=== PATIENT | female | born 1950 | race African-American/Black ===

== ENCOUNTER 2016-07-20 07:42 | Day surgery (SDC) | payer BC ==
--- NOTE | ~2016-07-20 | EGD ---
EGD REPORT [facility] [address] [place]. [address] NAME: BLADE SMITH : [birth year] STATUS : REG [facility]#: [id number] AGE: 65 ADM/REG DATE : 07/20/16 MR#: [id number] REPORT SERV DATE: 07/20/16 DICTATED BY: GUNNER SALINAS DATE: 07/20/16 REPORT STATUS : Draft [facility]ANS[facility]ED [facility]: [facility] DATE: 07/20/16 Endoscopy Center Patient Name: Blade Smith Date of : 1950 Attending MD: GUNNER SALINAS MD Procedure Date No Time: 07/20/2016 Procedure: Colonoscopy Indications: Generalized abdominal pain, Chronic diarrhea Referring MD: Dora Ybarra Medicines: Propofol per Anesthesia Complications: No immediate complications. Procedure: Pre-Anesthesia Assessment: - ASA Grade Assessment: III - A patient with severe systemic disease. - Prior to the procedure, a History and Physical was performed, and patient medications and allergies were reviewed. The patient's tolerance of previous anesthesia was also reviewed. The risks and benefits of the procedure and the sedation options and risks were discussed with the patient. All questions were answered, and informed consent was obtained. Prior Anticoagulants: The patient has taken no previous anticoagulant or antiplatelet agents. ASA Grade Assessment: III - A patient with severe systemic disease. After reviewing the risks and benefits, the patient was deemed in satisfactory condition to undergo the procedure. After I obtained informed consent, the scope was passed under direct vision. Throughout the procedure, the patient's blood pressure, pulse, and oxygen saturations were monitored continuously. The PCF [id number] was introduced through the anus and advanced to the cecum, identified by appendiceal orifice and ileocecal valve. The colonoscopy was performed without difficulty. The ileocecal valve and appendiceal orifice were photographed. The entire colon was examined. The colonoscopy was performed without difficulty. The patient tolerated the procedure well. The quality of the bowel preparation was good. Findings: The perianal and digital rectal examinations were normal. The colon (entire examined portion) appeared normal. Biopsies were taken with a cold forceps from the entire colon for evaluation of microscopic colitis. Hemorrhoids were found during retroflexion and were Grade I (internal EGD REPORT [address] [address] NAME: BLADE SMITH : [birth year] STATUS : REG [facility] PAT#: [id number] AGE: 65 ADM/REG DATE : 07/20/16 MR#: [id number] REPORT SERV DATE: 07/20/16 DICTATED BY: GUNNER SALINAS DATE: 07/20/16 REPORT STATUS : Draft TRANSCRIBED BY: [facility] DATE: 07/20/16 hemorrhoids that do not prolapse). The rest of the colon was normal. Impression: - The entire examined colon is normal. Biopsied. - Hemorrhoids. Recommendation: - Patient has a contact number available for emergencies. The signs and symptoms of potential delayed complications were discussed with the patient. Return to normal activities tomorrow. Written discharge instructions were provided to the patient. - Regular diet. - Patient has a contact number available for emergencies. The signs and symptoms of potential delayed complications were discussed with the patient. Return to normal activities tomorrow. Written discharge instructions were provided to the patient. - Regular diet. - Continue present medications. Procedure Code(s): --- Professional --- 16988, Colonoscopy, flexible, proximal to splenic flexure; with biopsy, single or multiple Diagnosis Code(s): --- Professional --- K64.0, First degree hemorrhoids R10.84, Generalized abdominal pain K52.9, Noninfective gastroenteritis and colitis, unspecified CPT copyright 2013 [employer]. All rights reserved. The codes documented in this report are preliminary and upon cna hha review may be revised to meet current compliance requirements. Gunner Salinas MD GUNNER SALINAS MD 07/20/2016 9:38 AM This report has been signed electronically. Number of Addenda: 0 Note Initiated On: 07/20/2016 9:13 AM Scope Withdrawal Time 0 hours 8 minutes 12 seconds [address] [place] [address]
--- NOTE | ~2016-07-20 | EGD ---
EGD REPORT [facility] [address] [place] [address] NAME: BLADE SMITH : [birth year] STATUS : REG [facility]#: [id number] AGE: 65 ADM/REG DATE : 07/20/16 MR#: [id number] REPORT SERV DATE: 07/20/16 DICTATED BY: GUNNER SALINAS DATE: 07/20/16 REPORT STATUS : Draft TRANSCRIBED BY: [facility] DATE: 07/20/16 Endoscopy Center Patient Name: Blade Smith Date of : 1950 Attending MD: GUNNER SALINAS MD Procedure Date No Time: 07/20/2016 Procedure: Upper GI endoscopy Indications: Epigastric abdominal pain, Suspected esophageal reflux, Diarrhea Referring MD: Dora Ybarra Medicines: Propofol per Anesthesia Complications: No immediate complications. Procedure: Pre-Anesthesia Assessment: - ASA Grade Assessment: III - A patient with severe systemic disease. After obtaining informed consent, the endoscope was passed under direct vision. Throughout the procedure, the patient's blood pressure, pulse, and oxygen saturations were monitored continuously. The GIF H190 [id number] was introduced through the mouth, and advanced to the second part of duodenum. The upper GI endoscopy was accomplished without difficulty. The patient tolerated the procedure well. Findings: A small hiatus hernia was present. Diffuse mild inflammation characterized by erosions and erythema was found in the stomach. Biopsies were taken with a cold forceps for histology. The examined duodenum was normal. Biopsies were taken with a cold forceps for histology. Impression: - Hiatus hernia. - Chronic gastritis. Biopsied. - Normal examined duodenum. Biopsied. Recommendation: - Discharge patient to home (ambulatory). - Return to nurse practitioner in 3 weeks. Procedure Code(s): --- Professional --- 23595, Esophagogastroduodenoscopy, flexible, transoral; with biopsy, single or multiple Diagnosis Code(s): --- Professional --- K44.9, Diaphragmatic hernia without obstruction or EGD REPORT [facility] [address] [place], [place] [address]. [address] NAME: BLADE SMITH : [birth year] STATUS : REG [facility] PAT#: [id number] AGE: 65 ADM/REG DATE : 07/20/16 MR#: [id number] REPORT SERV DATE: 07/20/16 DICTATED BY: GUNNER SALINAS. DATE: 07/20/16 REPORT STATUS : Draft TRANSCRIBED BY: [facility] DATE: 07/20/16 gangrene K29.50, Unspecified chronic gastritis without bleeding R10.13, Epigastric pain R19.7, Diarrhea, unspecified CPT copyright 2013 [employer]. All rights reserved. The codes documented in this report are preliminary and upon medical biller coder review may be revised to meet current compliance requirements. Gunner Salinas MD GUNNER SALINAS MD 07/20/2016 9:23 AM This report has been signed electronically. Number of Addenda: 0 Note Initiated On: 07/20/2016 9:12 AM Scope Withdrawal Time 0 hours 0 minutes 0 seconds [address] [facility] [place] [address]
[~2016-07-20 07:42] MED LIST: ADVAIR INH; ASAB PO; JANUMET1 TA1 PO; LANTUS SC; NOVOPEN SC; P10 PO; SPIRIVA INH; T200 PO; TOUJEO SC; VASOTEC10 PO; ZOCOR40 PO
== END 2016-07-20 23:59 | disposition home or self-care (01) ==
LOC: DMU 07:42
PROVIDERS: Internal Medicine Gastroenterology
PROC: 0DBE8ZX Excision of Large Intestine, Via Natural or Artificial Opening Endoscopic, Diagnostic (ICD-10-PCS; 2016-07-20)
PROC: 0DB68ZX Excision of Stomach, Via Natural or Artificial Opening Endoscopic, Diagnostic (ICD-10-PCS; principal; 2016-07-20 11:00)
PROC: 0DB98ZX Excision of Duodenum, Via Natural or Artificial Opening Endoscopic, Diagnostic (ICD-10-PCS; 2016-07-20 11:00)
DX: K29.50 Unspecified chronic gastritis without bleeding (principal); K64.0 First degree hemorrhoids; K44.9 Diaphragmatic hernia without obstruction or gangrene; R10.13 Epigastric pain; R10.84 Generalized abdominal pain; D86.9 Sarcoidosis, unspecified; J44.9 Chronic obstructive pulmonary disease, unspecified; E11.9 Type 2 diabetes mellitus without complications; R19.7 Diarrhea, unspecified; Z79.82 Long term (current) use of aspirin; Z79.51 Long term (current) use of inhaled steroids; Z79.4 Long term (current) use of insulin; Z79.84 Long term (current) use of oral hypoglycemic drugs; Z79.52 Long term (current) use of systemic steroids; Z79.899 Other long term (current) drug therapy; Z87.891 Personal history of nicotine dependence; Z99.81 Dependence on supplemental oxygen
CPT/HCPCS: 82962; 88305